=== PATIENT | female | born 1960 | race African-American/Black ===

== ENCOUNTER 2022-01-25 17:19 | Emergency (ER) | payer OTHER ==
[2022-01-25 19:14] LABS: #Basophils 0.1 10x3/uL (0.0-0.2); #Monocytes 0.7 10x3/uL (0.0-1.1); %Eosinophils 0.2 % (0.0-6.0); %Lymphocytes 8.4 % (18.0-47.0); %Monocytes 5.4 % (0.0-10.0); %Neutrophils 84.7 % (40.0-75.0); Hemoglobin 14.4 g/dL (12.0-15.5); Mean Corpuscular Hemoglobin 30.8 pg (27.0-33.0); Mean Corpuscular Volume 93.6 fl (81.6-98.3); Mean Platelet Volume 9.3 fl (7.4-10.4); Platelet Count 310 10x3/uL (150-450); RBC Distribution Width 13.8 % (11.5-14.5); Red Blood Cell (RBC) Count 4.67 10x6/uL (3.90-5.03)
[2022-01-25 19:22] LABS: ALT (SGPT) 61 U/L (8-55); AST (SGOT) 34 U/L (5-34); Albumin 4.7 g/dL (3.4-4.8); Alkaline Phosphatase 85 U/L (40-110); Anion Gap 19 mmol/L (10-20); BUN (Urea Nitrogen) 9 mg/dL (9.8-20.1); Bilirubin, Total 0.8 mg/dL (0.2-1.2); CRP (Inflammatory) Less than 0.50 mg/dL (= or < 0.5); Calc. Creatinine Clearance 0 mL/min (70-130); Carbon Dioxide 22 mmol/L (23-31); Chloride 101 mmol/L (98-107); Globulin 4.3 g/dL (2.4-3.5); Glucose 95 mg/dL (80-115); Lipase 5 U/L (8-78); Potassium 3.9 mmol/L (3.5-5.1); Sodium 138 mmol/L (136-145)
[2022-01-25] MEDS ORDERED: Morphine 4 MG/ML VIAL ONE (19:23)
[2022-01-25] MEDS ORDERED: Ondansetron PF 4 MG/2 ML Vial ONE (19:23)
[2022-01-25 19:26] LABS: Bilirubin Neg (Negative); Blood, Urine 50 (Negative); Clarity Clear (Clear); Glucose, Urine (Dipstick) Normal (Negative); Ketone, Urine 150 mg/dL (Negative); Leukocyte Negative (Negative); Nitrite Negative (Negative); Protein, Urine (Dipstick) 500 mg/dl (Neg-Trace); Urobilinogen Normal mg/dL (Less than 2)
[2022-01-25 19:35] LABS: Bacteria/HPF 4+ HPF (None Seen); Mucous/LPF 2+ LPF (<2+); RBC/HPF 0-3 HPF (0-3); WBC/HPF 0-3 HPF (0-3)
== END 2022-01-25 20:58 | disposition home or self-care (01) ==
LOC: CSHERS 17:19
DX: M54.50 Low back pain, unspecified (principal); R10.814 Left lower quadrant abdominal tenderness; I10 Essential (primary) hypertension; F17.210 Nicotine dependence, cigarettes, uncomplicated
CPT/HCPCS: 74177; 80053; 81003; 81015; 83605; 83690; 85025; 85652; 86140; 96374; 96375; J2270; J2405

== ENCOUNTER 2022-04-16 09:41 | Outpatient (CLI) | payer OTHER | END 2022-04-16 09:42 | disposition home or self-care (01) | LOC: CSHULT 09:41 | PROVIDERS: ATTEND Family Medicine | DX: R10.13 Epigastric pain (principal); Z12.2 Encounter for screening for malignant neoplasm of respiratory organs; F17.218 Nicotine dependence, cigarettes, with other nicotine-induced disorders; K76.0 Fatty (change of) liver, not elsewhere classified; N28.9 Disorder of kidney and ureter, unspecified | CPT/HCPCS: 71271; 76705 ==